=== PATIENT | female | born 2000 ===

== ENCOUNTER 2020-02-25 17:40 | Emergency (ER) | payer OTHER ==
[~2020-02-25] VITALS: Ht 162.6 cm; Wt 67.1 kg
== END 2020-02-25 18:45 | disposition home or self-care (01) ==
LOC: ER 17:40 → EMR PED 18:01 → ER 18:01 → EMR PED 18:45
DX: S01.122A Laceration with foreign body of left eyelid and periocular area, initial encounter (principal); W20.8XXA Other cause of strike by thrown, projected or falling object, initial encounter; Y93.89 Activity, other specified; Y92.828 Other wilderness area as the place of occurrence of the external cause; Y99.8 Other external cause status